=== PATIENT | female | born 1945 | race Caucasian/White ===

== ENCOUNTER 2016-12-29 15:40 | Emergency (ER) | payer MEDICARE ==
[~2016-12-29] VITALS: Ht 165.1 cm; Wt 104.4 kg
[2016-12-29] MEDS ORDERED: AMPICILLIN/SULBACTAM 3 GM in SODIUM CHLORIDE 0.9% 100 ML IVPB ONE (16:30)
[2016-12-29] MEDS ORDERED: SODIUM CHLORIDE FLUSH 10ML SYR IVF ONE (16:30)
[2016-12-29 16:41] LABS: HEMATOCRIT 35.7 % (34.6-47.8); HEMOGLOBIN 12.2 g/dL (11.7-16.4); WHITE BLOOD COUNT 5.6 x10^3/uL (3.4-10)
[2016-12-29 16:49] LABS: BLOOD UREA NITROGEN 28 mg/dL (7-18)
[2016-12-29] MEDS ORDERED: WARF10TA6 PO (16:59)
[2016-12-29] MEDS ORDERED: LOSA50TA6 PO (16:59)
[2016-12-29] MEDS ORDERED: WARF5TAB7 PO (16:59)
[2016-12-29] MEDS ORDERED: DIPHENHYDRAMINE 50 MG/ML, 1ML IVPush ONE ×2 (17:00→18:30)
[2016-12-29] MEDS ORDERED: CLINDAMYCIN PMX 600MG/50ML 50 ML IVPB ONE (17:00)
[2016-12-29] MEDS ORDERED: DIPHENHYDRAMINE 50 MG/ML, 1ML ONE ×2 (17:08→18:31)
[2016-12-29] MEDS ORDERED: CLINDAMYCIN PMX 600MG/50ML 50 ML ONE (17:09)
[2016-12-29 20:19] VITALS: BP 122/47
== END 2016-12-29 20:23 | disposition home or self-care (01) ==
LOC: ED 19:42
DX: T78.49XA Other allergy, initial encounter (principal); R21 Rash and other nonspecific skin eruption; C91.10 Chronic lymphocytic leukemia of B-cell type not having achieved remission; Z86.718 Personal history of other venous thrombosis and embolism; Z88.5 Allergy status to narcotic agent; W57.XXXA Bitten or stung by nonvenomous insect and other nonvenomous arthropods, initial encounter; Y92.89 Other specified places as the place of occurrence of the external cause
CPT/HCPCS: 36415; 80048; 81001; 82040; 83605; 85025; 85610; 87040; 93971; 96365; 96375; 96376; 99285; J1200